=== PATIENT | female | born 1990 | race Caucasian/White ===

== ENCOUNTER → 2016-03-26 | Outpatient (CLI) | payer OTHER ==
[~2016-03-26] MED LIST: MOTRIN 800800 MG/TAB PO; PERCOCET 325 MG1 TA2 PO; PRENATAL
== END ==
LOC: LAC 11:06
DX: Z39.1 Encounter for care and examination of lactating mother (principal); Z71.89 Other specified counseling

== ENCOUNTER → 2016-05-19 | Outpatient (REF) | LOC: WSPT 14:00 | DX: Z02.1 Encounter for pre-employment examination (principal) ==

== ENCOUNTER → 2016-10-07 | Outpatient (REF) | LOC: WSOH 15:15 | DX: Z02.89 Encounter for other administrative examinations (principal) ==

== ENCOUNTER 2018-04-21 06:38 | Inpatient (IN) | payer OTHER ==
[~2018-04-21] VITALS: Ht 167.6 cm; Wt 85.9 kg
[2018-04-27] VITALS (27 sets, daily range): BP systolic 102–130; BP diastolic 58–75; PULSE 64–92; TEMP 97.2–98.2
--- NOTE | 2018-04-27 06:45 | NUR ---
Pt here for scheduled induction of labor. 39.6 weeks gestation. No complications. Pt to [facility], explained. Consents signed. IV started to right hand x 1 attempt, blood drawn from IV site and sent to lab. LR then started and infusing without any difficulty. GBS neg. Assessment complete. Pt states she started tre last evening but not regular. States baby has been active, denies any leaking of fluid. SVE: 3-4/80/-2. 0730:FHR reactive, pitocin started at 2mu per order.
[2018-04-27 07:44] LABS: BASO % 0.1 % (0.0-2.0); EOS # 0.1 (0.0-0.7); EOS % 0.7 % (0-4.0); GRAN # 8.1 (1.4-6.5); GRAN % 75.9 % (42.2-75.2); HEMATOCRIT 39.9 % (37.0-47.0); HEMOGLOBIN 13.8 g/dl (12.5-16.0); LYMPH # 1.6 (1.2-3.4); LYMPH % 14.7 % (20.0-51.0); MEAN CELL VOLUME 89 fl (80.0-100.0); MEAN CORPUSCULAR HEMOGLOBIN 31 pg (27.0-31.0); MEAN CORPUSCULAR HGB CONC 35 g/dl (33.0-37.0); MEAN PLATELET VOLUME 10.6 fl (7.4-10.4); MONO # 0.9 (0.1-0.6); MONO % 8.3 % (1.7-9.3); PLATELET COUNT 185 K/mm3 (130-400); RED BLOOD COUNT 4.47 M/mm3 (4.10-5.30); REDCELL DISTRIBUTION WIDTH-CV 13.4 % (11.5-14.5)
--- NOTE | 2018-04-27 08:00 | NUR ---
Pt breathing through contractions. 0810:Requesting epidural. 0813:Dr Lundy called, see physician notification. 0814:Matt PAULINO called and notified. He will be on his way to hospital. 0850:Matt PAULINO here and at bedside. Epidural placed. Single shot given at 0858. See anesthesia notes. 0905:Dr Lundy at bedside, SVE: /-2. AROM per physician, clear fluid noted.
[2018-04-27] MEDS ORDERED: MOTRIN 800800 MG/TAB PO (09:03)
--- NOTE | 2018-04-27 10:00 | NUR ---
Pt comfortable with epidural and resting and visiting with . 1030:Ortiz catheter placed, clear, yellow urine returned. SVE: /-1. 1107:FHR not tracing, this nurse at bedside and EFM readjusted. SVE: Anterior lip/0 noted. pt repositioned and variable decels noted with contractions. 1113:Dr Lundy called, see physician notification. Pt prepped for delivery.
--- NOTE | 2018-04-27 11:35 | NUR ---
Pt feeling pressure. SVE: complete +2. 1137:Dr Lundy called for delivery. 1143:Dr Lundy here. 1147:Pt pushes through 1 contraction. 1148: of infant head and shoulders. Cord clamped and cut and in care of Alia RITTER. Infant skin to skin on pt's chest. 1150:Spontaneous delivery of placenta. LR with pitocin infusing at 333ml/hr without difficulty. Fundus firm, bleeding WNL. 1st degree laceration repaired by physician. 1200:pericare done, pt sitting up holding infant.
--- NOTE | 2018-04-27 13:30 | NUR ---
Pt able to ambulate to bathroom with assist. Unable to void at this time. Fundus firm, bleeding WNL. New pads on and pericare instructions given. Pt encouraged to attempt to void soon. Pt ambulates to room 215.Denies any pain.
[2018-04-28 04:00] VITALS: BP 128/70; PULSE 76; TEMP 98.3
[2018-04-28 07:30] VITALS: BP 126/76; PULSE 82; TEMP 97.8
--- NOTE | 2018-04-28 10:13 | NUR ---
Initial visit attempt; Nurse with patient, [employer] Training [employer] Development Manager left card offering congratulations for the of her daughter and information regarding the availability of spiritual care at [facility].
[2018-04-28 16:27] VITALS: BP 124/68; PULSE 76; TEMP 97.8
[2018-04-28 20:57] VITALS: BP 125/65; PULSE 68; TEMP 98
--- NOTE | 2018-04-29 06:30 | NUR ---
0645 Rests in bed, alert. baby. Denies any needs at this time.
[2018-04-29 08:00] VITALS: BP 93/48; PULSE 59; TEMP 97.7
[2018-04-29 08:45] VITALS: BP 119/72; PULSE 89; TEMP 97.8
--- NOTE | 2018-04-29 11:30 | NUR ---
Discharge instructions given, verbalizes understanding.
== END 2018-04-29 11:35 | disposition home or self-care (01) | DRG 807 ==
LOC: OB 04-27 06:33 → LDR 04-27 06:33 → OB 04-27 13:35
PROVIDERS: ADMIT Obstetrics & Gynecology
PROC: 10E0XZZ Delivery of Products of Conception, External Approach (ICD-10-PCS; principal; 2018-04-27)
PROC: 3E033VJ Introduction of Other Hormone into Peripheral Vein, Percutaneous Approach (ICD-10-PCS; 2018-04-27)
PROC: 0HQ9XZZ Repair Perineum Skin, External Approach (ICD-10-PCS; 2018-04-27)
DX: O75.89 Other specified complications of labor and delivery (principal); Z37.0 Single live birth; Z3A.39 39 weeks gestation of pregnancy; O70.0 First degree perineal laceration during delivery
CPT/HCPCS: J2590; J2795; J7120